=== PATIENT | female | born 1970 | race Caucasian/White ===

== ENCOUNTER 2016-11-24 05:07 | Emergency (ER) | payer OTHER ==
[2016-11-24] MEDS ORDERED: LORATADINE 10 MG TABLET PO ONE (05:41)
[2016-11-24] MEDS ORDERED: predniSONE 20 MG TABLET PO ONE (05:42)
--- NOTE | 2016-11-24 05:45 | ED Physician Documentation ---
General Adult - HISTORIAN Historian: patient, spouse - HPI Stated Complaint: fever, body aches, chills Chief Complaint: General Adult Additional Information: Fever, shaking chills, since night of 11/21. Body aches. No cough.Has frontal headache that is worse if she leans forward, lowers head. HX respiratory allergies, sinusitis. - ROS CONST: fever EYES/ENT: nasal congestion (bloody mucus when she blows her nose) CVS/RESP: denies: cough GI/: problems urinating (dysuria), nausea - PAST HX Past History: other (NIDDM, POS, Hypothyroidism) Allergies/Adverse Reactions: Allergies Allergy/AdvReac Type Severity Reaction Status Date / Time sulfamethoxazole Allergy Verified 11/24/16 05:30 [From Bactrim] trimethoprim [From Bactrim] Allergy Verified 11/24/16 05:30 Home Medications: Ambulatory Orders Medication Instructions Recorded Cholecalciferol (Vitamin D3) 2,000 unit PO DAILY u2 01/28/16 [Vitamin D-3] Lisinopril 10 mg PO DAILY u2 01/28/16 predniSONE [Deltasone] 10 mg PO DAILY #5 tablet 11/24/16 - SOCIAL HX Smoking History: non-smoker - FAMILY HX Family History: No - VITAL SIGNS Vital Signs: Vital Signs Temp Pulse Resp BP Pulse Ox 99.1 F 94 H 16 106/60 96 11/24/16 05:15 11/24/16 05:15 11/24/16 05:15 11/24/16 05:15 11/24/16 05:15 - REVIEWED ASSESSMENTS Nursing Assessment Reviewed: Yes Vitals Reviewed: Yes ED Results Lab/Radiology - Orders Orders: ED Orders Category Date Time Status INFLUENZA A&B Stat Lab 11/24/16 05:20 Ordered Loratadine [Claritin] Med 11/24/16 05:41 Once 10 mg PO NOW ONE predniSONE [Deltasone] Med 11/24/16 05:42 Once 20 mg PO NOW ONE General Adult Physical Exam - PHYSICAL EXAM GENERAL APPEARANCE: mild distress (appears tired, uncomfortable) EENT: eye inspection normal, ENT inspection normal, pharynx normal, other (no pain with palpation facial sinus areas) NECK: normal inspection, supple RESPIRATORY: no resp distress, breath sounds normal CVS: reg rate & rhythm, heart sounds normal, no murmur RECTAL: deferred BACK: normal inspection SKIN: warm/dry, normal color EXTREMITIES: normal range of motion (gait), no evidence of injury NEURO: CN's nml as tested, motor nml, sensation nml Discharge Clincal Impression: Sinus congestion, Viral illness Additional Instructions: Drink plenty of water. The prednisone may elevate your blood sugar. Use a vaporizer/humidifier when sleeping or resting. See Dr. Arrington if you are not better in 2-3 days. Home Medications: Ambulatory Orders Cholecalciferol (Vitamin D3) [Vitamin D-3] 2,000 unit PO DAILY u2 01/28/16 Lisinopril 10 mg PO DAILY u2 01/28/16 predniSONE [Deltasone] 10 mg PO DAILY #5 tablet 11/24/16 Condition: Fair Disposition: 01 HOME, SELF-CARE Decision to Admit: NO Decision Time: 05:53
[2016-11-24] MEDS ORDERED: ONDANSETRON HCL 4 MG TAB.RAPDIS PO ONE (05:50)
[2016-11-24 06:34] VITALS: BP 135/74
[2016-11-24 08:06] LABS: OCCULT BLOOD,URINE 2+ (NEGATIVE)
== END 2016-11-24 06:05 | disposition home or self-care (01) ==
LOC: ED 05:07
DX: J06.9 Acute upper respiratory infection, unspecified (principal)
CPT/HCPCS: 81002; 87088; 87400; A9270; 87186; 99282; 99283